=== PATIENT | female | born 1950 | race Caucasian/White ===

== ENCOUNTER 2018-07-11 12:55 | Emergency (ER) | payer OTHER ==
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
--- NOTE | 2018-07-11 13:43 | RAD REPORT ---
EXAM DESCRIPTION: CT - CTFB CLINICAL HISTORY: fall, jaw pain COMPARISON: No comparisons TECHNIQUE: Axial 2 mm thick images of the face were obtained with sagittal and coronal reconstructio n images. All CT scans are performed using dose optimization technique as appropriate and may include automated exposure control or mA/KV adjustment according to patient size. FINDINGS: No acute facial bone fracture is seen.The mandible is intact. The globes and orbital contents are grossly unremarkable.The paranasal sinuses and mastoids are clear . IMPRESSION: Negative for facial bone fracture.
[2018-07-11] MEDS ORDERED: TETANUS & DIPHTHERIA TOX,ADULT 0.5 ML VIAL ONE (14:20)
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
[2018-07-11 16:43] VITALS: TEMP 98.1
[2018-07-11 16:47] VITALS: BP 146/74; O2SAT 96
== END 2018-07-11 14:54 | disposition home or self-care (01) ==
LOC: ER 12:55
DX: S06.0X1A Concussion with loss of consciousness of 30 minutes or less, initial encounter (principal); V18.0XXA Pedal cycle driver injured in noncollision transport accident in nontraffic accident, initial encounter; Z23 Encounter for immunization; Z88.5 Allergy status to narcotic agent; E11.9 Type 2 diabetes mellitus without complications
CPT/HCPCS: 70450; 70486; 72125; 76377; 90714; 99284

== ENCOUNTER 2019-06-19 12:19 | Emergency (ER) | payer OTHER ==
[2019-06-19] MEDS ORDERED: TETANUS & DIPHTHERIA TOX,ADULT 0.5 ML VIAL ONE (12:47)
--- NOTE | 2019-06-19 13:14 | RAD REPORT ---
EXAM DESCRIPTION: RAD - Hand Right 3 View - 06/19/2019 1:02 pm CLINICAL HISTORY: middle finger sewing needle evaluate for FB;Pain COMPARISON: No comparisons FINDINGS: A needle foreign body is seen along the soft tissues of the distal phalanx of the third fi nger adjacent to the distal phalanx radial cortex. No fracture.
[2019-06-19] MEDS ORDERED: LIDOCAINE 1% MPF 5 ML VIAL ONE (13:52)
--- NOTE | 2019-06-19 14:41 | ER ---
Nurse's Notes [facility] Name: Alisa Bird Age: 68 yrs Sex: Female : 1950 Arrival Date: 06/19/2019 Time: 12:21 Bed 24 Private MD: Diagnosis: Foreign body in finger (removed) Presentation: 06/19 12:25 Presenting complaint: Patient states: "I think part of my sewing needle broke off in my aj1 finger" Puncture wound noted to right middle finger Redness swelling and bruising noted to right middle finger. Transition of care: patient was not received from another setting of care. Onset of symptoms was June 19, 2019 at 12:15. Risk Assessment: Do you want to hurt yourself or someone else? Patient reports no desire to harm self or others. Initial Sepsis Screen: Does the patient meet any 2 criteria? No. Patient's initial sepsis screen is negative. Does the patient have a suspected source of infection? No. Patient's initial sepsis screen is negative. Care prior to arrival: None. 12:25 Method Of Arrival: Ambulatory [facility] 12:25 Acuity: KOBI 4 aj1 Triage Assessment: 12:28 General: Appears in no apparent distress. comfortable, Behavior is calm, cooperative, aj1 appropriate for age. Pain: Pain currently is 4 out of 10 on a pain scale. Historical: - Allergies: 12:28 Codeine; aj1 - Home Meds: 12:28 None [Active]; aj1 - PMHx: 12:28 None; aj1 - Immunization history:: Flu vaccine is up to date. - Social history:: Smoking status: Patient/guardian denies using tobacco. - Ebola Screening: : Patient denies travel to an Ebola-affected area in the 21 days before illness onset. Screenin:58 Abuse screen: Denies threats or abuse. Denies injuries from another. Nutritional mg2 screening: No deficits noted. Tuberculosis screening: No symptoms or risk factors identified. Fall Risk None identified. Assessment: 13:56 General: Appears in no apparent distress. comfortable, Behavior is calm, cooperative. mg2 Pain: Complains of pain in right hand Pain does not radiate. Pain currently is 2 out of 10 on a pain scale. Quality of pain is described as aching, Pain began suddenly, 1 hour ago. Is intermittent. Neuro: Level of Consciousness is awake, alert, obeys commands, Oriented to person, place, time, situation. Cardiovascular: Capillary refill < 3 seconds Patient's skin is warm and dry. Respiratory: Airway is patent Respiratory effort is even, unlabored, Respiratory pattern is regular, symmetrical. GI: No signs and/or symptoms were reported involving the gastrointestinal system. : No signs and/or symptoms were reported regarding the genitourinary system. EENT: No signs and/or symptoms were reported regarding the EENT system. Derm: Skin is intact, is healthy with good turgor, Skin is pink, warm \\T\\ dry. normal. Musculoskeletal: Circulation, motion, and sensation intact. Capillary refill < 3 seconds, Swelling present in right middle finger. 14:52 Reassessment: Patient appears in no apparent distress at this time. mg2 Vital Signs: 12:28 BP 179 / 92; Pulse 59; Resp 18; Temp 97.4; Pulse Ox 99% on R/A; Weight 89.81 kg (R); aj1 Height 5 ft. 6 in. (167.64 cm) (R); 13:59 BP 151 / 70; Pulse 58; Resp 18; Pulse Ox 100% on R/A; mg2 14:52 BP 150 / 70; Pulse 59; Resp 18; Temp 98; Pulse Ox 100% on R/A; mg2 12:28 Body Mass Index 31.96 (89.81 kg, 167.64 cm) aj1 ED Course: 12:21 Patient arrived in ED. as 12:25 Aneesh Schulz MD is Attending Physician. ps1 12:27 Triage completed. aj1 12:28 Arm band placed on Patient placed in an exam room. aj1 12:31 Yannick Herrera, RN is Primary Nurse. mg2 12:36 Patient maintains SpO2 saturation greater than 95% on room air. jp3 12:37 Call light in reach. patient sitting in chair at bedside. Ice pack to injury. Verbal jp3 reassurance given. 13:02 X-ray(s) taken. jp3 13:03 Hand Right 3 View XRAY In Process Unspecified. EDMS 14:42 Assist provider with foreign body removal of needle from right middle finger using mg2 alligator clamps, Set up for procedure. Performed by Aneesh Schulz MD Dressed with gauze bandage, Patient tolerated well. Patient did not have IV access during this emergency room visit. Administered Medications: 12:47 Drug: Tetanus-Diphtheria Toxoid Adult 0.5 ml {Can Worker: [employer]. Exp: mg2 12/23/2020. Lot #: [id number]. } Route: IM; Site: left deltoid; 13:15 Follow up: Response: No adverse reaction mg2 14:30 Drug: Lidocaine (1 %) 5 ml {Note: applied by the provider.} Volume: 5 ml; Route: mg2 Infiltration; 14:54 Follow up: Response: No adverse reaction mg2 Outcome: 14:41 Discharge ordered by . ps1 14:55 Discharged to home ambulatory. mg2 14:55 Condition: good 14:55 Discharge instructions given to patient, Instructed on discharge instructions, follow up and referral plans. medication usage, Demonstrated understanding of instructions, follow-up care, medications, Prescriptions given X 2. 14:55 Patient left the ED. mg2 Signatures: Dispatcher [employer] EDMS Sarah Gutierrez RN RN aj1 Kennedi Dawson as Aneesh Schulz MD MD ps1 Yannick Herrera RN RN mg2 Barrington Egan jp3 Corrections: (The following items were deleted from the chart) 12:29 12:25 Presenting complaint: Patient states: "I think part of my sewing needle broke off aj1 in my finger" Puncture wound noted to right middle finger aj1
--- NOTE | 2019-06-19 14:42 | EDPHYS ---
Physician Documentation [facility] Name: Alisa Bird Age: 68 yrs Sex: Female : 1950 Arrival Date: 06/19/2019 Time: 12:21 Bed 24 Private MD: ED Physician Aneesh Schulz HPI: 06/19 12:41 This 68 yrs old Female presents to ER via Ambulatory with complaints of ps1 Puncture Wound - Finger. 12:41 patient was sewing with machine operated embroidery needle. Went through middle finger ps1 on right hand. Pain is moderate and worse when she feels the needle move. No cellulitic changes. No tdap. . Historical: - Allergies: 12:28 Codeine; aj1 - Home Meds: 12:28 None [Active]; aj1 - PMHx: 12:28 None; aj1 - Immunization history:: Flu vaccine is up to date. - Social history:: Smoking status: Patient/guardian denies using tobacco. - Ebola Screening: : Patient denies travel to an Ebola-affected area in the 21 days before illness onset. ROS: 14:37 Constitutional: Negative for fever, chills, and weight loss, Neuro: Negative for ps1 headache, weakness, numbness, tingling, and seizure. 14:37 Skin: Positive for puncture, of the palmar aspect of distal phalanx of right middle finger. Exam: 14:37 Constitutional: This is a well developed, well nourished patient who is awake, alert, ps1 and in no acute distress. Head/Face: Normocephalic, atraumatic. Eyes: Pupils equal round and reactive to light, extra-ocular motions intact. Lids and lashes normal. Conjunctiva and sclera are non-icteric and not injected. Cardiovascular: Regular rate and rhythm. No gallops, murmurs, or rubs. Normal PMI, no JVD. No pulse deficits. Abdomen/GI: Soft, non-tender, with normal bowel sounds. No distension or tympany. No guarding or rebound. No evidence of tenderness throughout. MS/ Extremity: Pulses equal, no cyanosis. Neurovascular intact. Full, normal range of motion. Neuro: Awake and alert, GCS 15, oriented to person, place, time, and situation. Cranial nerves II-XII grossly intact. Sensory grossly intact. 14:37 Skin: Appearance: normal except for affected area, puncture wound and swelling of distal aspect of finger. . Vital Signs: 12:28 BP 179 / 92; Pulse 59; Resp 18; Temp 97.4; Pulse Ox 99% on R/A; Weight 89.81 kg (R); aj1 Height 5 ft. 6 in. (167.64 cm) (R); 13:59 BP 151 / 70; Pulse 58; Resp 18; Pulse Ox 100% on R/A; mg2 14:52 BP 150 / 70; Pulse 59; Resp 18; Temp 98; Pulse Ox 100% on R/A; mg2 12:28 Body Mass Index 31.96 (89.81 kg, 167.64 cm) aj1 Procedures: 14:37 Foreign Body Removal: sewing needle, from the right palmar aspect of distal phalanx of ps1 right middle finger, by incising to remove, using lidocaine 1% without epinephrine to anesthesize the area, normal saline irrigation, Dressinx4s were used to dress the wound, x2 prolene suture, The patient tolerated the removal well. MDM: 12:56 Patient medically screened. ps1 14:44 Data reviewed: vital signs, nurses notes, radiologic studies. Counseling: I had a ps1 detailed discussion with the patient and/or guardian regarding: the historical points, exam findings, and any diagnostic results supporting the discharge/admit diagnosis, radiology results, the need for outpatient follow up, to return to the emergency department if symptoms worsen or persist or if there are any questions or concerns that arise at home. 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 Exp: mg2 12/23/2020. Lot #: [id number]. } Route: IM; Site: left deltoid; 13:15 Follow up: Response: No adverse reaction mg2 14:30 Drug: Lidocaine (1 %) 5 ml {Note: applied by the provider.} Volume: 5 ml; Route: mg2 Infiltration; 14:54 Follow up: Response: No adverse reaction mg2 Disposition: 06/19/19 14:41 Discharged to Home. Impression: Foreign body in finger (removed). - Condition is Stable. - Discharge Instructions: Foreign Body. - Prescriptions for Anaprox DS 550 mg Oral Tablet - take 1 tablet by ORAL route every 12 hours As needed; 20 tablet. Tramadol 50 mg Oral Tablet - take 1 tablet by ORAL route every 8 hours as needed; 12 tablet. Keflex 500 mg Oral Capsule - take 1 capsule by ORAL route every 8 hours for 5 days; 15 capsule. - Medication Reconciliation Form, Thank You Letter, Antibiotic Education, Prescription Opioid Use form. - Follow up: Emergency Department; When: As needed; Reason: Fever > 102 F, Worsening of condition. Follow up: Private Physician; When: 7 - 10 days; Reason: Fever > 102 F, Recheck today's complaints, Continuance of care, Staple/Suture removal, Re-evaluation by your physician. - Problem is new. - Symptoms are resolved. Signatures: Dispatcher [employer] EDSarah Marlow RN RN aj1 Aneesh Schulz MD MD ps1 Yannick Herrera RN RN mg2 Corrections: (The following items were deleted from the chart) 14:37 12:41 patient was sewing with machine operated embroidery needle. Went through middle ps1 finger on right hand. . ps1 14:55 14:41 06/19/2019 14:41 Discharged to Home. Impression: Foreign body in finger mg2 (removed). Condition is Stable. Forms are Medication Reconciliation Form, Thank You Letter, Antibiotic Education, Prescription Opioid Use. Follow up: Emergency Department; When: As needed; Reason: Fever > 102 F, Worsening of condition. Follow up: Private Physician; When: 7 - 10 days; Reason: Fever > 102 F, Recheck today's complaints, Continuance of care, Staple/Suture removal, Re-evaluation by your physician. Problem is new. Symptoms are resolved. ps1
[2019-06-19 15:28] VITALS: O2SAT 100
[2019-06-19 15:30] VITALS: BP 150/70; TEMP 98
== END 2019-06-19 14:55 | disposition home or self-care (01) ==
LOC: ER 12:19
PROC: 0JCJ0ZZ Extirpation of Matter from Right Hand Subcutaneous Tissue and Fascia, Open Approach (ICD-10-PCS; principal; 2019-06-19)
DX: S60.452A Superficial foreign body of right middle finger, initial encounter (principal); W31.89XA Contact with other specified machinery, initial encounter; Y93.89 Activity, other specified; Y92.9 Unspecified place or not applicable; Z23 Encounter for immunization; Z88.6 Allergy status to analgesic agent
CPT/HCPCS: 90471; 90714; 99284

== ENCOUNTER 2021-07-10 13:45 | Emergency (ER) | payer OTHER ==
--- OUTSIDE RECORDS SUMMARY | 2021-07-10 13:49 | XMS REPORT | Continuity of Care Document ---
:[address] [facility] t Address [address] [place] [address] Dr. Zelaya [address] [place] [address] Care Team Providers Name Role Phone Matt Mendez Attending Clinician Unavailable Matt Mendez Admitting Clinician Unavailable Payers Payer Name Policy Type Policy Number Effective Date Expiration Date S ource Problems This patient has no known problems. Allergies, Adverse Reactions, Alerts Allergy Allergy Status Severity Reaction(s) Onset Inactive Treating Comm ents Source Name Type Date Date Clinician codeine DA Active MO 2020-0 [facility] [place] [facility] mushroom FA Active MO 2020-0 [facility] 1[facility] [place] [facility] codeine DA Active MO CANT 2020-0 [facility] FUNCTION 1-24 [place] WELL;[place] [facility]: [facility]pe NATES [facility] mushroom FA Active MO pass out and 2020-0 [facility] A vomiting 1-24 [place] 00:00: [facility] codeine DA Active MO 2019-0 [facility] 3-28 [place] 00:[facility] codeine DA Active MO CANT 2019-0 [facility] FUNCTION 3-28 [place] WELL;[place] 00:00: [facility]pe NATES 00 [facility] codeine DA Active MO 2018-0 [facility] 8-08 [place] [facility] MUSHROOM DA Active MO PASS 2016-0 [facility] OUT;VOMIT 3-17 [place] [facility] Medications This patient has no known medications. Procedures Procedure Date / Time Performed Performing Clinician Oriana hamilton [id number] 2019-09-08 00:00:00 MORBR [facility] [place] [facility] Encounters Start End Encounter Admission Attending Care Care Encounter Source Date/Time Date/Time Type Type Clinicians Facility Department ID 2019-09-08 Inpatient ASH Serna SURG [id number] [facility] 10:28:00 [facility] [place] [facility] 2020-09-25 2020-09-25 Outpatient [facility] [id number] [facility] 2020-09-24 2020-09-24 Outpatient [facility] [id number] [facility] 2020-09-11 2020-09-11 Outpatient [facility] [id number] [facility] 2020-07-25 2020-07-25 Outpatient [facility] [id number] [facility] 2019-08-12 2019-08-12 Outpatient ASH Mendez RADI [id number] [facility] 10:00:00 10:00:00 Franck [id number] [place] [facility] Results Test Description Test Time Test Comments Results Result Oriana hamilton Comments - XR SHOULDER 1 V 2019-09-12 Patient Name: LT 14:39:00 YVES SMITH Unit No: [id number] EXAMS: CPT CODE: [id number] XR SHOULDER 1 [place] [address] IMAGES PROVIDED: Single AP view of the left shoulder FINDINGS: Postoperative changes of left reverse total shoulder arthoplasty demonstrated without evidence of immediate complication. No acute fracture. Visualized lung is clear. IMPRESSION: Left reverse total shoulder arthoplasty without immediate complication. at 1439 Reported and signed by: Rey Xavier M.D. CC: Franck Mendez MD Technologist: KHUSHBU HER RT(R) Transcribed D/ (7355) KarinaSLJ [facility] NAME: YVES SMITH [address] [facility] PHYS: Franck Guzman MD : 1950 AGE: 69 SEX: F [place], [place] [address] LOC: Y.321 A PHONE #: [phone] EXAM DATE: 09/08/2019 STATUS: DIS IN FAX #: [phone] RAD #: D/C DT 09/09/2019 PAGE 1 Signed Report Patient Name: YVES SMITH Unit No: [id number] EXAMS: CPT CODE: [id number] XR SHOULDER 1 [place] [address] <Continued> Orig Print D/T: S: 09/12/2019 (9712) [facility] NAME: YVES SMITH [address] [facility] PHYS: Franck Guzman MD : 1950 AGE: 69 SEX: F [place] [address] LOC: Y.321 A PHONE #: [phone] EXAM DATE: 09/08/2019 STATUS: DIS IN FAX #: [phone] RAD #: D/C DT 09/09/2019 PAGE 2 Signed Report BASIC METABOLIC PANEL 2019-09-09 06:42:00 Test Item Value Reference Range Interpretation Comme nts SODIUM (test code = NA) 144 mmol/L 136-145 N POTASSIUM (test code = K) 5.0 mmol/L 3.5-5.1 N CHLORIDE (test code = CL) 108.0 mmol/L 98-107 H CARBON DIOXIDE (test code = 28.1 mmol/L 21-32 N CO2) GLUCOSE (test code = GLU) 164 mg/dL 70-110 H BLOOD UREA NITROGEN (test code 37 mg/dL 7-18 H = BUN) GLOMERULAR FILTRATION RATE 67.2 >60 U nit of measure: (test code = GFR) mL/min/1.7 3 [id number] Range:Healthy A dults >90 mL/min/1.73 m2 For Chronic Kidney Disease: Stage II Mi ld Decrease in GFR 60-9 0 Stage III Moderate Decrease in GFR 30-59 Stage IV Severe Decrease in GFR 15-29 Stage V Kidney Failure <15 CREATININE (test code = CREAT) 0.84 mg/dL 0.55-1.30 N CALCIUM (test code = CA) 8.5 mg/dL 8.2-10.1 N CBC W/AUTO [id number] 05:51:00 Test Item Value Reference Range Interpretation Comments WHITE BLOOD CELL (test code = WBC) 10.2 K/mm3 5.8-11.0 N RED BLOOD CELL (test code = RBC) 3.55 M/mm3 4.2-5.4 L HEMOGLOBIN (test code = HGB) 10.4 g/dL 12-16 L HEMATOCRIT (test code = HCT) 31.9 % 37-47 L MEAN CELL VOLUME (test code = MCV) 90 fL 80-98 N MEAN CELL HGB (test code = MCH) 29.3 pg 27-34 N MEAN CELL HGB CONCENTRATION (test 32.6 g/dL 30.8-34.1 N code = MCHC) RED CELL DISTRIBUTION WIDTH (test 12.5 % 11-16 N code = RDW) PLT (test code = PLT) 210 K/mm3 130-400 N MEAN PLATELET VOLUME (test code = 11.8 fL 8.9-12.1 N MPV) NEUTROPHIL % (test code = NT%) 79.9 % 45-70 H LYMPHOCYTE % (test code = LY%) 9.0 % 20-40 L MONOCYTE % (test code = MO%) 10.1 % 3-10 H EOSINOPHIL % (test code = EO%) 0.3 % 1-5 L BASOPHIL % (test code = BA%) 0.2 % 0.0-1.1 N NEUTROPHIL # (test code = NT#) 8.16 K/mm3 2.00-7.50 H LYMPHOCYTE # (test code = LY#) 0.92 K/mm3 1.50-4.00 L MONOCYTE # (test code = MO#) 1.03 K/mm3 0.2-0.8 H EOSINOPHIL # (test code = EO#) 0.03 K/mm3 0.04-0.4 L BASOPHIL # (test code = BA#) 0.02 K/mm3 0.02-0.10 N MANUAL DIFF REQUIRED (test code = NO MANUAL DIFF MDIFF) NUCLEATED RED BLOOD CELL (test 0 % 0-0 N code = NRBC) SPECIMEN COMMENT: POD #1- CT UP EXTREM W/O CONT [id number] 07:28:00 Patient Name: YVES SMITH Unit No: [id number] EXAMS: CPT CODE: [id number] [place] EXTREM W/[place] [address] TECHNIQUE: Volumetric CT data of the left shoulder was obtained without useof intravenous contrast. Images were then viewed in the axial, coronal and sagittal planes. CT radiation dose optimization is achieved for this examination by the use of a CT protocol in accordance with ACR practice standards and adherence to substation operator automatic's recommendations. INDICATION: LEFT SHOULDER BLUE PRINT PROTOCOL ROTATOR CUFF ARTHROPATH COMPARISON: None. FINDINGS: There is evidence of chronic full-thickness supraspinatus tendon tear with marked elevation of the humeral head, which abuts the undersurface of the acromion. The acromion undersurface is remodeled/deformed. There is also fragmentation of the acromion. Marked glenohumeral joint space narrowing is greatest anteriorly. Moderate-sized osteophytes are greatest within the humeral head. Multiple loose bodies are seen measuring up to 1.6 cm posteriorly. There is also a loose body within the subcoracoid bursa measuring 1.3 cm. No acute fracture. Mild to moderate atrophy of the supraspinatus, infraspinatus, and the superior subscapularis muscles. The visualized left lung is clear. IMPRESSION: Evidence of chronic full-thickness rotator cuff tear with severe rotator cuff arthropathy. at 0728 Reported and signedby: Rey Xavier M.D. CC: Franck Mendez MD Technologist:Jeffery Broderick,RT(R) CTDI: DLP: Trnscrpt: 08/15/2019 (0728) KarinaMatt [facility] NAME: YVES SMITH [address] [facility] PHYS: Franck Guzman MD : 1950 AGE: 69 SEX: F [place], [place] [address] LOC: YMIKEY PHONE #: [phone] EXAM DATE: 08/12/2019 STATUS: DEP CLI FAX #: [phone] RAD #: D/C DT PAGE 1 Signed Report Patient Name: YVES SMITH Unit No:[id number] EXAMS: CPT CODE: [id number] CTUP EXTREM W/[place] [address] <Continued> Orig Print D/T: S: 08/15/2019 (0731) [facility] NAME: YVES SMITH [address] [facility] PHYS: Franck Guzman MD : 1950 AGE: 69 SEX: F [place], [place] [address] LOC: KodakRAD PHONE #: [phone] EXAM DATE: 08/12/2019 STATUS: DEP CLI FAX #: [phone] RAD #: D/C DT PAGE 2 Signed ReportCOMPREHENSIVE METABOLIC [id number] 13:07:00 Test Item Value Reference Range Interpretation Comments SODIUM (test code = 143 mmol/L 136-145 N NA) POTASSIUM (test code = 4.5 mmol/L 3.5-5.1 N K) CHLORIDE (test code = 105.0 mmol/L 98-107 N CL) CARBON DIOXIDE (test 30.0 mmol/L 21-32 N code = CO2) GLUCOSE (test code = 112 mg/dL 70-110 H GLU) BLOOD UREA NITROGEN 37 mg/dL 7-18 H (test code = BUN) GLOMERULAR FILTRATION 71.1 >60 Unit o f measure: RATE (test code = GFR) mL/mi n/1.73 [id number] Range:Healthy Adults >90 mL/min/1.73 m2 For Chronic Kidney Disease: St age II Mild Decrease in GFR 60-90 St age III Moderate Decrease in GFR 30-59 Stage IV Severe Decre ase in GFR 15- 29 Stage V Kidney Failure <15 CREATININE (test code 0.80 mg/dL 0.55-1.30 N = CREAT) TOTAL PROTEIN (test 6.6 g/dL 6.4-8.2 N code = PROT) ALBUMIN (test code = 3.6 g/dL 3.4-5.0 N ALB) GLOBULIN (test code = 3.0 g/dL 2.2-4.2 N GLOB) ALBUMIN/GLOBULIN RATIO 1.2 0.7-2.0 N (test code = A/G) CALCIUM (test code = 9.0 mg/dL 8.2-10.1 N CA) BILIRUBIN TOTAL (test 0.19 mg/dL 0.2-1.00 L code = BILT) SGOT/AST (test code = 24.0 U/L 15-37 N AST) SGPT/ALT (test code = 34.0 U/L 12-78 N Please note new ALT) normal range. ALKALINE PHOSPHATASE 86 U/L 46-116 N TOTAL (test code = ALKP) PROTHROMBIN [id number] 12:55:00 Test Item Value Reference Range Interpretation Comments PROTHROMBIN TIME 11.4 secs 10.1-12.5 N PATIENT (test code = PTP) INTERNATIONAL NORMAL 1.02 <2.0 RECOMME NDED THERAPEUTIC RATIO (test code = RANGE FOR ORAL INR) ANTICOAGULANTTR EATMENT: CONDI TION INRProphylaxis of venous thrombos is in 2.0 - 3.0 high-risk medic al or surgical patientsTreatme nt of venous thrombos is 2.0 - 3.0Prevention o f embolism 2.0 - 3.0Prevention o f recurrent embol ism, or 3.0 - 4. 5 patients with mechanical pros thetic intravascular v darden IS PATIENT ON ANTICOAGULANTS ? NMas Lab been notified if Patient is on Heparin Drip? NOIf Yes, orderCBC, OCCULT BLOOD, PT every other day NTHROMBOPLASTIN TIME [id number] 12:55:00 Test Item Value Reference Range Interpretation Comments PTT ACTIVATED (test code = APTT) 39.1 secs 24.9-37.0 H IS PATIENT ON ANTICOAGULANTS ? NHas Lab been notified if Patient is on Heparin Drip? NOIf Yes, orderCBC, OCCULT BLOOD, PT every other day NCBC W/AUTO DIFF 2019-08-12 12:40:00 Test Item Value Reference Range Interpretation Comments WHITE BLOOD CELL (test code = WBC) 5.9 K/mm3 5.8-11.0 N RED BLOOD CELL (test code = RBC) 3.85 M/mm3 4.2-5.4 L HEMOGLOBIN (test code = HGB) 11.4 g/dL 12-16 L HEMATOCRIT (test code = HCT) 34.3 % 37-47 L MEAN CELL VOLUME (test code = MCV) 89 fL 80-98 N MEAN CELL HGB (test code = MCH) 29.6 pg 27-34 N MEAN CELL HGB CONCENTRATION (test 33.2 g/dL 30.8-34.1 N code = MCHC) RED CELL DISTRIBUTION WIDTH (test 12.4 % 11-16 N code = RDW) PLT (test code = PLT) 232 K/mm3 130-400 N MEAN PLATELET VOLUME (test code = 11.7 fL 8.9-12.1 N MPV) NEUTROPHIL % (test code = NT%) 57.1 % 45-70 N LYMPHOCYTE % (test code = LY%) 33.8 % 20-40 N MONOCYTE % (test code = MO%) 6.0 % 3-10 N EOSINOPHIL % (test code = EO%) 2.2 % 1-5 N BASOPHIL % (test code = BA%) 0.7 % 0.0-1.1 N NEUTROPHIL # (test code = NT#) 3.36 K/mm3 2.00-7.50 N LYMPHOCYTE # (test code = LY#) 1.99 K/mm3 1.50-4.00 N MONOCYTE # (test code = MO#) 0.35 K/mm3 0.2-0.8 N EOSINOPHIL # (test code = EO#) 0.13 K/mm3 0.04-0.4 N BASOPHIL # (test code = BA#) 0.04 K/mm3 0.02-0.10 N MANUAL DIFF REQUIRED (test code = NO MANUAL DIFF MDIFF) NUCLEATED RED BLOOD CELL (test 0 % 0-0 N code = NRBC) - XR SHOULDER 1 V [id number] 11:50:00 Patient Name: YVES SMITH Unit No: [id number] EXAMS: CPT CODE: [id number] XR SHOULDER [place] [address] SINGLE AP VIEW OF THE RIGHT SHOULDER Comment: The patient is status post total reverse right shoulder arthroplasty. The prosthesis appears to be in good position. at 1150 Reported and signed by: Luigi Ulloa MD CC: Franck Mendez MD Technologist: JANES GARDUNO (RT.R) Transcribed D/ (1150) tJose [email or web address] [facility] NAME: YVES SMITHKIMBERVINCENT [address] [facility] PHYS: Franck Guzman MD : 1950 AGE: 68 SEX: F [place], [place] [address] LOC: Y.320 A PHONE #: [phone] EXAM DATE: 10/14/2018 STATUS: DIS IN FAX #: [phone] RAD #: D/C DT 10/15/2018 PAGE 1 Signed Report Patient Name: YVES SMITH Unit No: [id number] EXAMS: CPT CODE: [id number] XR SHOULDER 1 [place] [id number] <Continued> Orig Print D/T: S: 10/15/2018 (1153) [facility] NAME: YVES SMITHEDDIE [address] [facility] PHYS: Franck Guzman MD : 1950 AGE: 68 SEX: F [place] [address] LOC: Y.320 A PHONE #: [phone] EXAM DATE: 10/14/2018 STATUS: DIS IN FAX #: [phone] RAD #: D/C DT 10/15/2018 PAGE 2 Signed ReportCBC W/AUTO [id number] 06:22:00 Test Item Value Reference Range Interpretation Comments WHITE BLOOD CELL (test code = WBC) 10.1 K/mm3 5.8-11.0 N RED BLOOD CELL (test code = RBC) 3.43 M/mm3 4.2-5.4 L HEMOGLOBIN (test code = HGB) 9.9 g/dL 12-16 L HEMATOCRIT (test code = HCT) 30.4 % 37-47 L MEAN CELL VOLUME (test code = MCV) 89 fL 80-98 N MEAN CELL HGB (test code = MCH) 28.9 pg 27-34 N MEAN CELL HGB CONCENTRATION (test 32.6 g/dL 30.8-34.1 N code = MCHC) RED CELL DISTRIBUTION WIDTH (test 12.5 % 11-16 N code = RDW) PLT (test code = PLT) 216 K/mm3 130-400 N MEAN PLATELET VOLUME (test code = 11.7 fL 8.9-12.1 N MPV) NEUTROPHIL % (test code = NT%) 79.2 % 45-70 H LYMPHOCYTE % (test code = LY%) 11.0 % 20-40 L MONOCYTE % (test code = MO%) 8.4 % 3-10 N EOSINOPHIL % (test code = EO%) 0.7 % 1-5 L BASOPHIL % (test code = BA%) 0.2 % 0.0-1.1 N NEUTROPHIL # (test code = NT#) 7.97 K/mm3 2.00-7.50 H LYMPHOCYTE # (test code = LY#) 1.11 K/mm3 1.50-4.00 L MONOCYTE # (test code = MO#) 0.85 K/mm3 0.2-0.8 H EOSINOPHIL # (test code = EO#) 0.07 K/mm3 0.04-0.4 N BASOPHIL # (test code = BA#) 0.02 K/mm3 0.02-0.10 N MANUAL DIFF REQUIRED (test code = NO MANUAL DIFF MDIFF) NUCLEATED RED BLOOD CELL (test 0 % 0-0 N code = NRBC) SPECIMEN COMMENT: POD #1- CT UP EXTREM W/O CONT [id number] 10:07:00 Patient Name: YVES SMITH Unit No: [id number] EXAMS: CPT CODE: [id number] CT UP EXTREM W/[place] [address] CT OF THE RIGHT SHOULDER WITH SAGITTAL AND CORONAL RECONSTRUCTIONS DIAGNOSIS: Advanced degenerative change of the glenohumeral joint is noted with osteophyte formation. There is superior migration of the humeral head and an os acromiale with e rosion of the undersurface of the acromion. Fatty atrophy of the supraspinatus, subscapularisand infraspinatus muscles is noted. COMMENT: COMPARISON: No prior exams available. Scans were performed with thin sections and reconstructions wereobtained. CT radiation dose optimization is achieved for this examination by the use of a CT protocol in accordance with ACR practice standards and adherence to substation operator automatic's recommendations. Degenerative changes present as noted. The rotator cuff is abnormal as described. Loose bodies are seen in the anterior aspect of the joint. at 1007 Reported and signed by: George Villarreal MD CC: Franck Mendez MD Technologist: Jeffery Broderick,RT(R) CTDI: DLP: Trnscrpt: 09/23/2018 (1007) t.[email or web address] [facility] NAME: YVES SMITH [address] [facility] PHYS: Franck Guzman MD : 1950 AGE: 68 SEX: F [place] [address] LOC: Y.RAD PHONE #: [phone] EXAM DATE: 09/22/2018 STATUS: DEP CLI FAX #: [phone] RAD #: D/C DT PAGE 1 Signed Report Patient Name: YVES SMITH Unit No: [id number] EXAMS: CPT CODE: [id number] CT UP EXTREM W/[place] [address] <Continued> Orig Print D/T: S: 09/23/2018 (1010) [facility] NAME: YVES SMITH [address] [facility] PHYS: Franck Guzman MD : 1950 AGE: 68 SEX: F [place] [address] LOC: Y.RAD PHONE #: [phone] EXAM DATE: 09/22/2018 STATUS: DEP CLI FAX #: [phone] RAD #: D/C DT PAGE 2 Signed ReportCOMPREHENSIVE METABOLIC [id number] 19:15:00 Test Item Value Reference Range Interpretation Comments SODIUM (test code = 141 mmol/L 136-145 N NA) POTASSIUM (test code = 4.4 mmol/L 3.5-5.1 N K) CHLORIDE (test code = 102.0 mmol/L 98-107 N CL) CARBON DIOXIDE (test 29.5 mmol/L 21-32 N code = CO2) GLUCOSE (test code = 101 mg/dL 70-110 N GLU) BLOOD UREA NITROGEN 30 mg/dL 7-18 H (test code = BUN) GLOMERULAR FILTRATION 79.3 >60 Unit o f measure: RATE (test code = GFR) mL/mi n/1.73 d4Tueepcylf Range:Healthy Adults >90 mL/min/1.73 m2 For Chronic Kidney Disease: St age II Mild Decrease in GFR 60-90 St age III Moderate Decrease in GFR 30-59 Stage IV Severe Decre ase in GFR 15- 29 Stage V Kidney Failure <15 CREATININE (test code 0.73 mg/dL 0.55-1.30 N = CREAT) TOTAL PROTEIN (test 7.0 g/dL 6.4-8.2 N code = PROT) ALBUMIN (test code = 3.7 g/dL 3.4-5.0 N ALB) GLOBULIN (test code = 3.3 g/dL 2.2-4.2 N GLOB) ALBUMIN/GLOBULIN RATIO 1.1 0.7-2.0 N (test code = A/G) CALCIUM (test code = 9.4 mg/dL 8.2-10.1 N CA) BILIRUBIN TOTAL (test 0.27 mg/dL 0.2-1.00 N code = BILT) SGOT/AST (test code = 23.0 U/L 15-37 N AST) SGPT/ALT (test code = 34.0 U/L 12-78 N Please note new ALT) normal range. ALKALINE PHOSPHATASE 105 U/L 46-116 N TOTAL (test code = ALKP) PROTHROMBIN [id number] 19:15:00 Test Item Value Reference Range Interpretation Comments PROTHROMBIN TIME 11.9 secs 10.1-12.5 N PATIENT (test code = PTP) INTERNATIONAL NORMAL 1.05 <2.0 RECOMME NDED THERAPEUTIC RATIO (test code = RANGE FOR ORAL INR) ANTICOAGULANTTR EATMENT: CONDI TION INRProphylaxis of venous thrombos is in 2.0 - 3.0 high-risk medic al or surgical patientsTreatme nt of venous thrombos is 2.0 - 3.0Prevention o f embolism 2.0 - 3.0Prevention o f recurrent embol ism, or 3.0 - 4. 5 patients with mechanical pros thetic intravascular v darden IS PATIENT ON ANTICOAGULANTS ? NHas Lab been notified if Patient is on Heparin Drip? NOTHROMBOPLASTIN TIME [id number] 19:15:00 Test Item Value Reference Range Interpretation Comments PTT ACTIVATED (test code = APTT) 34.5 secs 24.9-37.0 N IS PATIENT ON ANTICOAGULANTS ? NMas Lab been notified if Patient is on Heparin Drip? NOCBC W/AUTO [id number] 18:32:00 Test Item Value Reference Range Interpretation Comments WHITE BLOOD CELL (test code = WBC) 8.0 K/mm3 5.8-11.0 N RED BLOOD CELL (test code = RBC) 4.16 M/mm3 4.2-5.4 L HEMOGLOBIN (test code = HGB) 11.9 g/dL 12-16 L HEMATOCRIT (test code = HCT) 36.4 % 37-47 L MEAN CELL VOLUME (test code = MCV) 88 fL 80-98 N MEAN CELL HGB (test code = MCH) 28.6 pg 27-34 N MEAN CELL HGB CONCENTRATION (test 32.7 g/dL 30.8-34.1 N code = MCHC) RED CELL DISTRIBUTION WIDTH (test 12.5 % 11-16 N code = RDW) PLT (test code = PLT) 308 K/mm3 130-400 N MEAN PLATELET VOLUME (test code = 11.4 fL 8.9-12.1 N MPV) NEUTROPHIL % (test code = NT%) 61.6 % 45-70 N LYMPHOCYTE % (test code = LY%) 29.5 % 20-40 N MONOCYTE % (test code = MO%) 6.5 % 3-10 N EOSINOPHIL % (test code = EO%) 1.8 % 1-5 N BASOPHIL % (test code = BA%) 0.3 % 0.0-1.1 N NEUTROPHIL # (test code = NT#) 4.93 K/mm3 2.00-7.50 N LYMPHOCYTE # (test code = LY#) 2.36 K/mm3 1.50-4.00 N MONOCYTE # (test code = MO#) 0.52 K/mm3 0.2-0.8 N EOSINOPHIL # (test code = EO#) 0.14 K/mm3 0.04-0.4 N BASOPHIL # (test code = BA#) 0.02 K/mm3 0.02-0.10 N MANUAL DIFF REQUIRED (test code = NO MANUAL DIFF MDIFF) NUCLEATED RED BLOOD CELL (test 0 % 0-0 N code = NRBC)
--- NOTE | 2021-07-10 16:04 | RAD REPORT ---
EXAM DESCRIPTION: RAD - Knee Left 3 View - 07/10/2021 3:58 pm CLINICAL HISTORY: fall COMPARISON: No comparisons FINDINGS: No acute fracture. No malalignment. No significant focal degenerative changes. Status post left knee arthroplasty. No hardware complications . IMPRESSION: No acute osseous abnormality involving the left knee. No hardware complications .
--- NOTE | 2021-07-10 16:06 | RAD REPORT ---
EXAM DESCRIPTION: RAD - Hand Right 3 View - 07/10/2021 3:58 pm CLINICAL HISTORY: fall COMPARISON: Hand Right 3 View dated 06/19/2019 FINDINGS: No acute fracture. No malalignment. Mild to moderate degenerative changes are present at t he first carpometacarpal joint. Scattered Interphalangeal joint space narrowing and osteophytosis whi ch is mild. IMPRESSION: No acute osseous abnormality involving the right hand.
--- NOTE | 2021-07-10 16:07 | RAD REPORT ---
EXAM DESCRIPTION: RAD - Chest Single View - 07/10/2021 3:58 pm CLINICAL HISTORY: fall COMPARISON: Chest Pa And Lat (2 Views) dated 07/02/2020 FINDINGS: Lines: None. Lungs: No evidence of edema or pneumonia. Pleural: No significant pleural effusions or pneumothorax. Cardiac: The heart size is within normal limits. Bones: No acute fractures. Shoulder arthroplasties. Other: IMPRESSION: No acute cardiopulmonary disease.
--- NOTE | 2021-07-10 16:07 | RAD REPORT ---
EXAM DESCRIPTION: RAD - Shoulder Right 2 View - 07/10/2021 3:58 pm CLINICAL HISTORY: fall COMPARISON: Chest Single View dated 07/10/2021; Chest Pa And Lat (2 Views) dated 07/02/2020 FINDINGS: Right shoulder arthroplasty which is not well assessed due to positioning. No dislocation is identified. No definite hardware complications are present. No fracture identified. IMPRESSION: No acute osseous abnormality involving the right shoulder.
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
[2021-07-10 17:12] VITALS: BP 159/75; TEMP 97.9; O2SAT 100
== END 2021-07-10 17:07 | disposition home or self-care (01) ==
LOC: ER 13:45
DX: S43.401A Unspecified sprain of right shoulder joint, initial encounter (principal); S63.633A Sprain of interphalangeal joint of left middle finger, initial encounter; S80.02XA Contusion of left knee, initial encounter; W17.89XA Other fall from one level to another, initial encounter; E11.9 Type 2 diabetes mellitus without complications; Z88.5 Allergy status to narcotic agent
CPT/HCPCS: 71045; 99284